=== PATIENT | female | born 1995 ===

== ENCOUNTER 2021-11-07 20:35 | Emergency (ER) | payer OTHER, SELFPAY ==
[2021-11-07 20:45] VITALS: BP 142/87; PULSE 107; O2SAT 100
[2021-11-07 20:48] VITALS: BP 142/87; PULSE 99; RESP 16; TEMP 36.6; O2SAT 99; BMI 20.5
[2021-11-07 21:05] VITALS: PULSE 77; RESP 19
--- NOTE | 2021-11-07 21:25 | ED_ITS ---
HPI - GI Bleed General Chief complaint: GI Bleed Stated complaint: Bleeding from rectum Time Seen by Provider: 11/07/21 20:53 Mode of arrival: Family Vehicle History of Present Illness HPI Narrative: 26-year-old female nonsmoker presents with constipation, rectal pain, straining on the toilet and an episode of bright red blood in the toilet this morning. That had since resolved. She is been having issues with hemorrhoids ever since she delivered a child about 8 months ago, furthermore she states that she is been having issues with constipation on off for quite some time. Historically she finds that if she altered her diet appropriately, drinks plenty of fluids she has normal and regular bowel movements. She states that for the past week she has been in [place] and not been eating healthy and it was quite hot and she became dehydrated. Today she was on the toilet and was straining and had bright red blood as noted but clearly states that it had stopped long before her arrival. She denies any history of other bowel issues. She takes no blood t hinner and denies any trauma. She is not dizzy nor weak or lightheaded. She has no fever or chills. Related Data Previous Rx's Medication Instructions Recorded hydrocortisone 2.5 % topical cream 1 applic MT QD-BID PRN hemorrhoids 11/07/21 with perineal applicator #30 grams (Anusol-HC) hydrocortisone acetate 25 mg 25 mg MT BID #24 ea 11/07/21 rectal suppository (Anusol-HC) Allergies Allergy/AdvReac Type Severity Reaction Status Date / Time amoxicillin Allergy Rash Verified 11/07/21 21:19 Review of Systems Review of Systems Narrative: GENERAL: Denies chills, fatigue, malaise, fever, sweats. HEENT: Denies sinus pain, ear pain, sore throat, difficulty swallowing, dizziness. RESPIRATORY: Denies dyspnea, cough, wheezing, hemoptysis, sputum. CARDIOVASCULAR: Denies chest pain, palpitations, orthopnea, edema, GASTROINTESTINAL: See HPI : Denies dysuria, frequency, incontinence, hematuria, urinary retention. MUSCULOSKELETAL: denies weakness, joint pain, or bony pain SKIN: Denies rash, skin lesions, or other NEUROLOGIC: Denies weakness, headache, numbness, change in speech, confusion, seizures, incoordination. PSYCHIATRIC: No concerning psychosocial issues. 12 point review of systems is negative except for those stated above Patient History Social History Smoking Status: Never smoker Smoking Status: Never smoker Substance Use Type: does not use Exam Narrative Exam Narrative: GENERAL: [26] year old patient appears stated age. Well-developed patient, in mild distress. HEAD: Atraumatic. Normocephalic. EYES: Pupils equal round and reactive. Extraocular motions intact. No scleral icterus. No injection or drainage. ENT: Nose without bleeding, purulent drainage. Throat without erythema, tonsillar hypertrophy or exudate. Airway patent. NECK: Trachea midline. Non tender CARDIOVASCULAR: Regular rate and rhythm without murmurs, gallops, or rubs. RESPIRATORY: Clear to auscultation. Breath sounds equal bilaterally. No wheezes, rales, or rhonchi. GASTROINTESTINAL: Abdomen soft, non-tender, nondistended. RECTAL: Two moderate sized external hemorrhoids. No fissure noted. No active bleeding. Performed with patient permission and female nurse multisensor intelligence officer at the bedside EXTREMITIES: No edema or joint tenderness. BACK: Nontender without deformity or crepitance. No flank tenderness. NEURO: AOx3. SKIN: No rash or erythema of visible areas Initial Vital Signs Initial Vital Signs: Vital Signs Pulse Rate 107 H 11/07/21 20:45 Blood Pressure 142/87 H 11/07/21 20:45 Pulse Oximetry 100 11/07/21 20:45 Course Vital Signs Vital signs: Vital Signs - 8 hr 11/07/21 20:48 11/07/21 20:45 11/07/21 20:45 Temperature 97.8 F Pulse Rate 99 H 107 H Respiratory Rate 16 Blood Pressure 142/87 H 142/87 H Pulse Oximetry 99 100 Oxygen Delivery Method Room Air 11/07/21 21:05 11/07/21 21:50 11/07/21 21:30 Temperature Pulse Rate 77 78 81 Respiratory Rate 19 Blood Pressure 116/71 Pulse Oximetry Oxygen Delivery Method MDM - GI Bleed MDM Narrative Medical decision making narrative: Patient presents with straining on the toilet and an episode of resolved bright red blood per rectum. She has external hemorrhoids, recently had a bit of a lapse in her routine diet that likely contributed to constipation. There is no evidence of fissure or active bleeding. Return precautions given and questions answered to her apparent satisfaction Discharge Plan Departure Patient Disposition: Home Clinical Impression: Hemorrhoids Instructions: DI for Hemorrhoids Activity Restrictions/Additional Instructions: *You have been diagnosed with [bleeding hemorrhoids due to constipation ] *What to do: *Take over the counter medications as directed: 1. Metamucil - is a bulk forming laxative and adds fiber 2. Colace - softens your stool 3. Dulcolax suppository - stimulates your bowels * prescription medications sent to your pharmacy. Also, as we discussed [id number] medications such as preparation H and the stool softeners below can be helpful. * you may purchase a Donut Pillow at the pharmacy which you can sit on which will relieve the pressure * Sitz Bath - may be obtained at the store as well and you can soak your bottom in it with warm water and epsom salts 2 times daily *Follow up with your primary care provider in 2-3 days, call for appointment. In addition I have included contact info for [facility] so you may talk about other possibilities given the frequency of your troubles *Return to ER if you should have any new, worsening or concerning symptoms *Drink plenty of water and eat foods high in fiber *Stay as active as you can as this helps move your bowels as well Prescriptions: New hydrocortisone [Anusol-HC] 2.5 % cream with perineal applicator 1 applic MT QD-BID PRN (Reason: hemorrhoids) Qty: 30 0RF hydrocortisone acetate [Anusol-HC] 25 mg suppository 25 mg MT BID Qty: 24 0RF Referrals: Geraldo Arias MD [Physician] - Visit Report Forms: Patient Portal/API
[2021-11-07 21:30] VITALS: PULSE 81
[2021-11-07 21:50] VITALS: BP 116/71; PULSE 78
== END 2021-11-07 21:54 | disposition home or self-care (01) ==
PROVIDERS: Emergency Provider Emergency Medicine
DX: K64.9 Unspecified hemorrhoids (principal)
CPT/HCPCS: 99281